=== PATIENT | female | born 1955 | race Caucasian/White ===

== ENCOUNTER 2017-01-28 12:04 | Day surgery (SDC) | payer BC ==
[~2017-01-28] VITALS: Ht 152.4 cm; Wt 53.1 kg
[2017-01-28] MEDS ORDERED: PROPOFOL 200MG/ 20ML VIAL (DIPRIVAN) IV ONE (14:05)
[2017-01-28] MEDS ORDERED: ATROPINE SULFATE 0.4 MG/ML VIAL IVP ONE (14:05)
[2017-01-28] MEDS ORDERED: NS IRRIG SOLN 1000 ML IR ONE (14:05)
[2017-01-28] MEDS ORDERED: SEVOFLURANE 15 MIN GAS INH ONE (14:05)
[2017-01-28] MEDS ORDERED: ROCURONIUM BROMIDE 10 MG/ML (ZEMURON) IV ONE (14:05)
[2017-01-28] MEDS ORDERED: DEXAMETHASONE SOD PHOSPHATE 4 MG/ML VIAL IVP ONE (14:05)
[2017-01-28] MEDS ORDERED: ONDANSETRON HCL 4 MG/2 ML VIAL IVP ONE (14:05)
[2017-01-28] MEDS ORDERED: WATER FOR IRRIGATION,STERILE 1,000 ML IRRIG.SOLN IR ONE (14:05)
[2017-01-28] MEDS ORDERED: fentaNYL CITRATE 250 MCG/5 ML AMP IV ONE (14:05)
[2017-01-28] MEDS ORDERED: SUCCINYLCHOLINE CHLORIDE 20 MG/ML(QUELICIN) IVP ONE (14:05)
[2017-01-28] MEDS ORDERED: MIDAZOLAM HCL 5 MG/5 ML VIAL IVP ONE (14:05)
[2017-01-28] MEDS ORDERED: LR 1,000 ML IV.SOLN IV ONE (14:05)
[2017-01-28] MEDS ORDERED: KETOROLAC TROMETHAMINE 30 MG VIAL IVP ONE (14:05)
[2017-01-28] MEDS ORDERED: FAMOTIDINE PF 20 MG/2 ML VIAL IVP ONE (14:05)
[2017-01-28] MEDS ORDERED: FAMOTIDINE PF 20 MG/2 ML VIAL ONE (15:02)
[2017-01-28] MEDS ORDERED: LR 1,000 ML IV SCH (15:19)
[2017-01-28] MEDS ORDERED: HYDROmorphone 1 MG INJ. 1 MG/ML AMPUL IVP PRN (15:30)
[2017-01-28] MEDS ORDERED: MEPERIDINE HCL/PF 25 MG/ML DISP.SYRIN IVP PRN (15:30)
[2017-01-28] MEDS ORDERED: HYDROmorphone 2 MG/ML VIAL IVP PRN ×2 (15:30)
[2017-01-28 17:00] VITALS: BP_SYST 135
== END 2017-01-28 17:50 | disposition home or self-care (01) ==
LOC: SDS 12:04
PROVIDERS: ATTEND Otolaryngology
DX: D38.0 Neoplasm of uncertain behavior of larynx (principal); J38.3 Other diseases of vocal cords; K21.9 Gastro-esophageal reflux disease without esophagitis; Z87.891 Personal history of nicotine dependence; Z88.0 Allergy status to penicillin
CPT/HCPCS: 31536; 71020; 88304; J0330; J0461; J1100; J1170; J1885; J2250; J2405; J2704; J3010; J3490; J7120